=== PATIENT | male | born 1990 ===

== ENCOUNTER 2017-07-19 21:33 | Emergency (ER) | payer SELFPAY ==
[2017-07-19 21:43] VITALS: RESP 18; TEMP 97.9
[2017-07-19] MEDS ORDERED: Lidocaine 2% Inj (20ml) ONE (22:24)
[2017-07-19] MEDS ORDERED: Tetanus/Diphtheria Toxoids 0.5 ml Syringe IM ONE (22:34)
[2017-07-19] MEDS ORDERED: Lidocaine 2% Inj (20ml) INFIL ONE (22:34)
--- NOTE | 2017-07-19 23:16 | C.PDOC ---
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 Pt reports, "tripped and was trying to break the fall and grab to the fence". Pt also request evaluation of Right hand, after " punched something" and developed pain over 4th and 5th MTB. Otherwise, pt denies deformity, wound discharge weakness, sensory or vascular deficits to B/L UEs. Pt admits, previous hx of Right hand injury/fx. Ambulate to ED for evaluation, not in any apparent distress. Time Seen by Provider: 07/19/17 21:46 Chief Complaint (Nursing): Abnormal Skin Integrity History Per: Patient Onset/Duration Of Symptoms: Sudden Onset Past Medical History Reviewed: Historical Data, Nursing Documentation, Vital Signs Vital Signs: Last Vital Signs Temp 97.9 F 07/19/17 21:41 Pulse 87 07/19/17 21:41 Resp 18 07/19/17 21:41 BP 96/55 L 07/19/17 21:41 Pulse Ox 97 07/19/17 23:16 - Medical History PMH: No Chronic Diseases Surgical History: No Surg Hx Family History: States: No Known Family Hx - Social History Hx Alcohol Use: Yes Hx Substance Use: Yes - Immunization History Hx Tetanus Toxoid Vaccination: No Hx Influenza Vaccination: No Hx Pneumococcal Vaccination: No Review Of Systems Except As Marked, All Systems Reviewed And Found Negative. Constitutional: Negative for: Fever, Chills Musculoskeletal: Positive for: Hand Pain Skin: Positive for: Lesions Neurological: Negative for: Weakness, Numbness, Altered Mental Status, Dizziness Physical Exam - Physical Exam Appears: Well, Non-toxic, No Acute Distress Skin: Normal Color, Warm, Other ((+)4cm cutaneous laceration to palmar aspect left hand overlying 3rd-4th MCB. NO tendon involvement, no joint involvement, no wound FB) Head: Atraumatic, Normacephalic Eye(s): bilateral: PERRL Neck: Trachea Midline, No Midline Cervical Tenderness, No Paracervical Tenderness, No Step Off Deformity, Supple Chest: Symmetrical, No Deformity, No Tenderness Back: Normal Inspection, No Vertebral Tenderness Extremity: Normal ROM (B/L UEs), Tenderness (mild tenderness over dorsal asepct Right hand over 4th-5th MCB, no palpable deformity. FAROM, no neurovascular deficits.), No Deformity, Swelling (mild Right hand) Neurological/Psych: Oriented x3, Normal Speech, Normal Motor, Normal Sensation, Normal Reflexes ED Course And Treatment O2 Sat by Pulse Oximetry: 97 - Other Rad B/L hands X-Ray: Interpreted by Me, Viewed By Me Interpretation: (+) Right hand well healed fx of 5th MCB. No new acute fx or dislocation. Progress Note: On re-evaluation, pt is AAO#3, not in any apparent distress. Head: AT/NC. B/L hand: laceration of left hand repaired without difficulty. Right hand exam c/w contusion. FAROM, no neurovascular deficits B/L. Neurologicaly intact. Imaging review and appears without acute abnormalities. Volar splint applied to Right hand. Pt advised. ref. to F/u with PMD, hand in 2-3 days for re-evaluation. Laceration - Laceration Repair Left hand Wound Length (In cm): 4 Description Of Wound: Irregular Wound Cleansed With: Betadine, Sterile Saline Anesthesia: Lidocaine 2% Wound Examination: Irrigated With Saline, No FB With Wound Exploration, No Tendon Injury With Wound Exploration Wound Closure: Suture (#9) Suture Technique And Material Used: Interrupted, Nylon (5-0), Chromic (5-0#3) Wound Complexity: Intermediate Disposition Counseled Patient/Family Regarding: Studies Performed, Diagnosis, Need For Followup - Disposition Referrals: [facility] [Outside] Binta Voss MD [Staff Provider] - Disposition: HOME/ ROUTINE Disposition Time: 23:28 Condition: STABLE Additional Instructions: Keep wound clean, dry Take medication as prescribed Splint to Right hand for 1 week Suture removal in 7-10 days Follow up with PMD and Hand specialist in 2-3 days for re-evaluation. Return to ED if any worsening or new changes. Prescriptions: Cephalexin [Keflex] 500 mg PO Q6 #28 capsule Instructions: Hand Sprain (ED), Laceration (ED) Forms: [employer] ([place]) - Clinical Impression Clinical Impression: Contusion of hand, Laceration
[2017-07-19 23:35] VITALS: BP 101/60; PULSE 82
[2017-07-19 23:37] VITALS: O2SAT 97
--- NOTE | 2017-07-20 11:41 | RAD ---
PROCEDURE: Bilateral hand radiographs. HISTORY: injury COMPARISON: None. FINDINGS: BONES: Right Hand: Normal. No osteoarthritic changes. Left Hand: Normal. No osteoarthritic changes. JOINTS: Right Hand: Normal. Left Hand: Normal. SOFT TISSUES: Right Hand: Normal. Left Hand: Normal. OTHER FINDINGS: None. IMPRESSION: Normal radiographs of the hands.
== END 2017-07-19 23:35 | disposition home or self-care (01) ==
LOC: C.ER 21:33
DX: S61.412A Laceration without foreign body of left hand, initial encounter (principal); W45.8XXA Other foreign body or object entering through skin, initial encounter; Y93.89 Activity, other specified; Y92.89 Other specified places as the place of occurrence of the external cause; Z23 Encounter for immunization

== ENCOUNTER 2018-05-28 17:34 | Emergency (ER) | payer OTHER ==
[2018-05-28 17:44] VITALS: BP 108/66; PULSE 86; RESP 18; TEMP 99; O2SAT 99
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
== END 2018-05-28 18:34 | disposition home or self-care (01) ==
LOC: C.ER 17:34
DX: S70.11XA Contusion of right thigh, initial encounter (principal); X58.XXXA Exposure to other specified factors, initial encounter; Y92.89 Other specified places as the place of occurrence of the external cause; Y99.0 Civilian activity done for income or pay